=== PATIENT | female | born 1950 | race African-American/Black ===

== ENCOUNTER 2016-11-17 18:36 | Emergency (ER) | payer MEDICAID ==
[~2016-11-17] VITALS: Ht 165.1 cm; Wt 54.5 kg
[2016-11-17 18:40] VITALS: BP 120/98; PULSE 104; TEMP 97.9
[2016-11-17] MEDS ORDERED: PREDNISONE20 MG PO (19:40)
== END 2016-11-17 19:48 | disposition home or self-care (01) ==
LOC: COL.ER 18:36
DX: R21 Rash and other nonspecific skin eruption (principal); L29.9 Pruritus, unspecified